=== PATIENT | male | born 1935 | race Caucasian/White ===

== ENCOUNTER 2017-03-09 06:24 | Day surgery (SDC) | payer OTHER ==
[~2017-03-09] VITALS: Ht 175.3 cm; Wt 115.6 kg
[2017-03-09] MEDS ORDERED: FENTAnyl 50 MCG/ML VIAL ONE (07:52)
[2017-03-09] MEDS ORDERED: PROPOFOL 40 ML ONE (07:52)
[2017-03-09 08:00] VITALS: BP 139/72; PULSE 70; RESP 20
[2017-03-09] MEDS ORDERED: BENA1TAB13 PO (08:13)
[2017-03-09] MEDS ORDERED: MONT10TA21 PO (08:13)
[2017-03-09] MEDS ORDERED: PANT40SU PO (08:13)
[2017-03-09] MEDS ORDERED: INSULIN GLARGINE SC (08:13)
[2017-03-09] MEDS ORDERED: SITA100T8 PO (08:13)
[2017-03-09] MEDS ORDERED: ASPI-535 PO (08:13)
[2017-03-09] MEDS ORDERED: GLIM4TAB PO (08:13)
[2017-03-09] MEDS ORDERED: potassium PO (08:13)
[2017-03-09] MEDS ORDERED: LAS20 PO (08:13)
[2017-03-09] MEDS ORDERED: MTF1000T PO (08:13)
[2017-03-09] MEDS ORDERED: INSU100V27 SQ (08:13)
[2017-03-09] MEDS ORDERED: CETI10CA11 PO (08:13)
[2017-03-09 08:18] VITALS: Ht 175.3 cm; Wt 115.6 kg
[2017-03-09 09:43] VITALS: BP 153/71; PULSE 76; RESP 12
--- NOTE | 2017-03-09 11:26 | GILP ---
DATE OF PROCEDURE: INDICATION: An 81-year-old male undergoing this procedure for screening colonoscopy. The risks of the procedure, related and unrelated complications, anesthetic risks, alternatives were thoroughly d iscussed with the patient, and informed consent was obtained. DESCRIPTION OF PROCEDURE: The patient was brought to the GI lab, sedated by Dr. Branch. After opti mal sedation, the scope was passed with much ease into rectum. He had a solid stool that pushed to the side, advanced all the way into the cecum. IC valve identified. Peeped into terminal ileum, bu t the patient had a poor prep. He had stool throughout the colon precluding the visibility by 20% t o 25%. Rest of the colon was normal. He had a severe diverticulosis present in the left side of th e colon. Scope was removed with good patient tolerance. IMPRESSION: 1. Poor prep. 2. Severe diverticulosis, left side of the colon. 3. Negative into the cecum. 4. Negative terminal ileum. PLAN: The patient is to stay on high fiber diet. The colonoscopy needs to be repeated after 3 year s because of the poor prep, and he needs to lose weight. Dictated By: GISSELL PERKINS/NTS Conf#: [id number] DID#: [id number] CC: ;*EndCC*
== END 2017-03-09 10:52 | disposition home or self-care (01) ==
LOC: GIL 06:24
PROVIDERS: ATTEND Internal Medicine Gastroenterology
DX: Z12.11 Encounter for screening for malignant neoplasm of colon (principal); K57.90 Diverticulosis of intestine, part unspecified, without perforation or abscess without bleeding; I10 Essential (primary) hypertension; E11.9 Type 2 diabetes mellitus without complications; Z86.73 Personal history of transient ischemic attack (TIA), and cerebral infarction without residual deficits; E66.9 Obesity, unspecified; Z68.37 Body mass index [BMI] 37.0-37.9, adult
CPT/HCPCS: 45378; 82962; J3010